=== PATIENT | female | born 1990 | race Caucasian/White ===

== ENCOUNTER → 2020-03-16 | Outpatient (CLI) | payer OTHER ==
[~2020-03-16] MED LIST: IBUP800; OXYACE5T; Prenatal Vitam1 EAC2 PO
[2020-03-18 01:08] LABS: CHLAMYDIA TRACHOMATIS, NAA Negative (Negative); NEISSERIA GONORRHOEAE, NAA Negative (Negative)
== END ==
LOC: EDSTATUS 14:20 → LAB SHORT 14:52 → LAB 14:52
PROVIDERS: Registered Nurse Community Health
DX: Z34.80 Encounter for supervision of other normal pregnancy, unspecified trimester (principal)
CPT/HCPCS: 87491; 87591

== ENCOUNTER → 2020-04-13 | Outpatient (CLI) | payer OTHER ==
[2020-04-14 19:10] LABS: CHLAMYDIA TRACHOMATIS, NAA Negative (Negative); NEISSERIA GONORRHOEAE, NAA Negative (Negative)
== END ==
LOC: LAB UCHC 13:58 → LAB SHORT 13:58
PROVIDERS: Registered Nurse Community Health
DX: Z34.80 Encounter for supervision of other normal pregnancy, unspecified trimester (principal)
CPT/HCPCS: 87491; 87591

== ENCOUNTER → 2020-06-09 | Outpatient (CLI) | payer OTHER ==
[2020-06-09 12:31] LABS: Hematocrit 35.4 % (33.0-51.0); Hemoglobin 11.5 g/dL (11.5-16.0)
== END ==
LOC: LAB UCHC 10:05 → LAB SHORT 10:05
PROVIDERS: Registered Nurse Community Health
DX: Z34.80 Encounter for supervision of other normal pregnancy, unspecified trimester (principal)
CPT/HCPCS: 82950; 85014; 85018

== ENCOUNTER → 2020-08-17 | Outpatient (CLI) | payer OTHER ==
[~2020-08-17] MED LIST changes: +PRENATAL TABLE1 EAC2 PO
== END ==
LOC: LAB SHORT 19:42 → LAB 19:42
DX: Z34.80 Encounter for supervision of other normal pregnancy, unspecified trimester (principal)
CPT/HCPCS: 87081; 87653

== ENCOUNTER 2020-08-31 15:11 | Inpatient (IN) | payer OTHER ==
[~2020-08-31] VITALS: Ht 162.6 cm; Wt 56.0 kg
[2020-09-03 09:16] LABS: BASOPHILS ABSOLUTE AUTO 0.04 K/mm3 (0.00-0.23); BASOPHILS PERCENT AUTO 0 % (0-2); EOSINOPHILS ABSOLUTE AUTO 0.05 K/mm3 (0.00-0.68); EOSINOPHILS PERCENT AUTO 1 % (0-6); Hematocrit 33.3 % (33.0-51.0); Hemoglobin 10.7 g/dL (11.5-16.0); IMMATURE GRAN ABSOLUTE AUTO 0.16 K/mm3 (0.00-0.10); IMMATURE GRAN PERCENT AUTO 2 % (0-1); LYMPHOCYTES ABSOLUTE AUTO 2.26 K/mm3 (0.84-5.20); LYMPHOCYTES PERCENT AUTO 22 % (21-46); MONOCYTES ABSOLUTE AUTO 1.02 K/mm3 (0.16-1.47); MONOCYTES PERCENT AUTO 10 % (4-13); Mean Corpuscular HGB 29.6 pg (26.0-34.0); Mean Corpuscular HGB Conc 32.1 g/dL (31.5-36.5); Mean Corpuscular Volume 92 fL (80-100); Mean Platelet Volume 11.2 fL (9.1-12.4); NEUTROPHILS ABSOLUTE AUTO 6.84 K/mm3 (1.96-9.15); NEUTROPHILS PERCENT AUTO 66 % (41-73); Platelet Count 202 K/mm3 (150-400); RDW Coefficient Variation 13.1 % (11.7-14.2); RDW Standard Deviation 43.6 fL (35.1-46.3); Red Blood Cell Count 3.62 M/mm3 (3.80-5.20); White Blood Cell Count 10.37 K/mm3 (4.00-11.30)
[2020-09-03 10:54] LABS: PCO2 Cord - Arterial 55.5 mmHg (40-50); PO2 Cord - Arterial 15.8 mmHg (16-20); pH Cord - Arterial 7.31 (7.28-7.35)
[2020-09-03 10:56] LABS: PCO2 Cord - Venous 44.3 mmHg (40-50); PO2 Cord - Venous 27.5 mmHg (28-32); pH Umbilical Cord - Venous 7.36 (7.26-7.35)
--- NOTE | 2020-09-03 11:12 | NUR ---
09/03/20 1112 Dahlia Mckeon VIABLE FEMALE BORN AT 1043 VIA REPEAT SECTION. APGARS 9/9. WT 6-16 ([id number] GM), 20.5 IN STEVE, 14 IN HEAD, AND 12 3/4 IN CHEST. PLACENTA WEIGHED 545 GRAMS. CORD BLOOD WAS COLLECTED AND GIVEN TO JOSTIN HESS TO SEND TO LABOR FOR BLOOD TYPE. CORD SEGMENT WAS GIVEN TO RT HARJIT FOR GASSES PER DR. JEFFERSON. PT HAD A BILATERAL SALPINGECTOMY AND FALLOPIAN TUBES WERE COLLECTED AND LABLED TO SEND TO PATHOLOGY.
--- NOTE | 2020-09-04 01:11 | NUR ---
2200-SBAR FROM Dominik BALLARD RN, ASSUME CARE OF PT AT THIS TIME
[2020-09-04 05:36] LABS: BASOPHILS ABSOLUTE AUTO 0.04 K/mm3 (0.00-0.23); BASOPHILS PERCENT AUTO 0 % (0-2); EOSINOPHILS PERCENT AUTO 1 % (0-6); Hematocrit 30.8 % (33.0-51.0); Hemoglobin 10.3 g/dL (11.5-16.0); IMMATURE GRAN ABSOLUTE AUTO 0.23 K/mm3 (0.00-0.10); IMMATURE GRAN PERCENT AUTO 1 % (0-1); LYMPHOCYTES ABSOLUTE AUTO 2.59 K/mm3 (0.84-5.20); LYMPHOCYTES PERCENT AUTO 16 % (21-46); MONOCYTES ABSOLUTE AUTO 1.62 K/mm3 (0.16-1.47); MONOCYTES PERCENT AUTO 10 % (4-13); Mean Corpuscular HGB 30.3 pg (26.0-34.0); Mean Corpuscular HGB Conc 33.4 g/dL (31.5-36.5); Mean Corpuscular Volume 91 fL (80-100); Mean Platelet Volume 11.5 fL (9.1-12.4); NEUTROPHILS ABSOLUTE AUTO 11.93 K/mm3 (1.96-9.15); NEUTROPHILS PERCENT AUTO 72 % (41-73); Platelet Count 188 K/mm3 (150-400); RDW Coefficient Variation 13.1 % (11.7-14.2); RDW Standard Deviation 43.1 fL (35.1-46.3); White Blood Cell Count 16.51 K/mm3 (4.00-11.30)
[2020-09-04] MEDS ORDERED: IBUP800 PO (10:47)
[2020-09-04] MEDS ORDERED: Percocet 5-3251 EACH PO (10:48)
--- NOTE | 2020-09-04 12:26 | NUR ---
PT DISCHARGED TO HOME. BANDS CHECKED. CAR SEAT CHECKED. DISCHARGE TEACHING DONE. NO QUESTIONS OR CONCERNS AT THIS TIME. MOTHER DECLINED FLU SHOT. F/U APT 09/06/20 @1300
== END 2020-09-04 12:29 | disposition home or self-care (01) | DRG 785 ==
LOC: BC 09-03 08:52
PROVIDERS: ADMIT Obstetrics & Gynecology
PROC: 10D00Z1 Extraction of Products of Conception, Low, Open Approach (ICD-10-PCS; principal; 2020-09-03 10:45)
PROC: 0UT70ZZ Resection of Bilateral Fallopian Tubes, Open Approach (ICD-10-PCS; 2020-09-03 10:45)
DX: O34.211 Maternal care for low transverse scar from previous cesarean delivery (principal); Z30.2 Encounter for sterilization; Z37.0 Single live birth; Z3A.39 39 weeks gestation of pregnancy
CPT/HCPCS: 36415; 82803; 85025; 86850; 86870; 86900; 86901; 86905; 88302; A9270; J0690; J1885; J2370; J2405; J2590; J2704; J2765; J3010; J3360; J7120